=== PATIENT | male | born 1960 | race Caucasian/White ===

== ENCOUNTER 2020-06-19 01:02 | Emergency (ER) | payer OTHER ==
--- NOTE | 2020-07-27 16:42 | ECGEPIP ---
SINUS RHYTHM POSSIBLE RIGHT VENTRICULAR CONDUCTION DELAY BORDERLINE ECG SEE SCANNED DOWNTIME REPORT MTDD
[2020-08-04 18:37] LABS: HEMATOCRIT 42.3 % (42.0-52.0); HEMOGLOBIN 14.8 g/dl (13.5-17.5); MEAN CORPUSCULAR HEMOGLOBIN 31.9 pg (27.0-33.0); MEAN CORPUSCULAR VOLUME 91.2 fl (80.0-96.0); PLATELET COUNT, AUTOMATED 146 10^3/uL (150-450); RED BLOOD COUNT 4.64 10^6/uL (4.30-6.10); WHITE BLOOD COUNT 4.6 10^3/uL (4.0-10.0)
[2020-09-04 03:20] LABS: BLOOD UREA NITROGEN 24 MG/DL (7-18); CALCIUM LEVEL 9.2 MG/DL (8.5-10.1); CARBON DIOXIDE LEVEL 22 MEQ/L (21-32); CHLORIDE LEVEL 108 MEQ/L (98-107); CREATININE FOR GFR 1.08 MG/DL (0.70-1.30); ETHYL ALCOHOL (ETHANOL) 0.278 % (0.000-0.010); GLOMERULAR FILTRATION RATE > 60.0 (>56); GLUCOSE, FASTING 93 MG/DL (70-100); POTASSIUM SERUM 3.8 MEQ/L (3.5-5.1); SODIUM LEVEL 143 MEQ/L (136-145)
[2020-09-04 03:21] LABS: AMPHETAMINES LEVEL URINE NEGATIVE (NEGATIVE); BARBITURATES URINE NEGATIVE (NEGATIVE); BENZODIAZEPINES URINE NEGATIVE (NEGATIVE); CANNABINOIDS URINE NEGATIVE (NEGATIVE); COCAINE METABOLITE URINE NEGATIVE (NEGATIVE); METHADONE URINE NEGATIVE (NEGATIVE); OPIATES URINE NEGATIVE (NEGATIVE); PHENCYCLIDINE URINE NEGATIVE (NEGATIVE)
== END 2020-06-19 03:50 | disposition home or self-care (01) ==
LOC: M ED 01:02
DX: F10.129 Alcohol abuse with intoxication, unspecified (principal); G89.29 Other chronic pain; Z88.1 Allergy status to other antibiotic agents; Z79.899 Other long term (current) drug therapy
CPT/HCPCS: 36415; 70450; 80048; 80307; 85027; 93005; 99284; G0480

== ENCOUNTER → 2022-04-25 | Outpatient (REF) | payer BC, OTHER ==
[2022-04-25 12:38] LABS: FOLATE 18.5 NG/ML
== END ==
LOC: M LAB REF 11:40
PROVIDERS: ATTEND Physician Assistant Medical
DX: R41.81 Age-related cognitive decline (principal)

== ENCOUNTER → 2022-08-08 | Outpatient (CLI) | payer BC, OTHER | LOC: M WUC 13:51 | PROVIDERS: ATTEND Physician Assistant Medical | DX: M25.562 Pain in left knee (principal) ==